=== PATIENT | female | born 1945 | race African-American/Black ===

== ENCOUNTER 2017-10-08 08:20 | Emergency (ER) | payer MEDICARE | END 2017-10-08 09:03 | disposition home or self-care (01) | LOC: BURERS 08:20 | DX: J06.9 Acute upper respiratory infection, unspecified (principal); I10 Essential (primary) hypertension; E78.5 Hyperlipidemia, unspecified; G40.909 Epilepsy, unspecified, not intractable, without status epilepticus; E11.40 Type 2 diabetes mellitus with diabetic neuropathy, unspecified; F32.9 Major depressive disorder, single episode, unspecified | CPT/HCPCS: J7620 ==